=== PATIENT | female | born 1975 | race Caucasian/White ===

== ENCOUNTER 2019-06-23 22:31 | Emergency (ER) | payer OTHER ==
[~2019-06-23] VITALS: Ht 175.3 cm; Wt 65.1 kg
[2019-06-23] MEDS ORDERED: LORazepam 1MG TABLET ONE (23:59)
[2019-06-24] MEDS ORDERED: LORazepam 1MG TABLET PO ONE
[2019-06-24 00:19] LABS: ALANINE AMINOTRANSFERASE 32 U/L (12-78); ALBUMIN 4.3 g/dL (3.4-5.0); ANION GAP 6 mmol/L (5-15); CALCIUM 8.8 mg/dL (8.5-10.1); CHLORIDE 108 mmol/L (98-107)
[2019-06-24 00:25] LABS: ALKALINE PHOSPHATASE 64 U/L (45-117); BILIRUBIN,TOTAL 0.3 mg/dL (0.2-1.0); TOTAL PROTEIN 7.6 g/dL (6.4-8.2)
[2019-06-24 00:51] VITALS: BP 123/95
== END 2019-06-24 01:05 ==
LOC: ED 06-24 00:59
DX: M79.10 Myalgia, unspecified site (principal)
CPT/HCPCS: 36415; 80053; 80307; 82150; 84443; 84703; 93005; 99284